=== PATIENT | female | born 1970 | race Two or more races ===

== ENCOUNTER 2021-04-02 04:35 | Day surgery (SDC) | payer OTHER ==
[2021-03-30 09:04] VITALS: BMI 26.9
[2021-04-02] MEDS ORDERED: ACETAMINOPHEN 325 MG TABLET (FP) PO PRN (08:12)
[2021-04-02] MEDS ORDERED: IBUPROFEN 400 MG TABLET (FP) PO PRN (08:12)
[2021-04-02] MEDS ORDERED: MIDAZOLAM HCL 2 MG/2 ML SINGLE DOSE VIAL ONE (09:07)
[2021-04-02] MEDS ORDERED: PROPOFOL 20 ML ONE (09:08)
[2021-04-02] MEDS ORDERED: ONDANSETRON 4 MG/2 ML VIAL IVPUSH PRN (10:25)
[2021-04-02] MEDS ORDERED: oxyCODONE HCL 5 MG TABLET PO PRN (10:25)
[2021-04-02] MEDS ORDERED: PROMETHAZINE HCL 25 MG/1 ML VIAL IVPUSH PRN (10:25)
[2021-04-02] MEDS ORDERED: LACTATED RINGERS SOLUTION 1,000 ML IV SCH (10:30)
[2021-04-02 12:37] VITALS: TEMP 97.5
[2021-04-02 14:37] VITALS: BP 110/68; PULSE 78
== END 2021-04-02 13:50 | disposition home or self-care (01) ==
LOC: JASU-SURG 04:35
PROVIDERS: ATTEND Obstetrics & Gynecology
PROC: 0UB98ZX Excision of Uterus, Via Natural or Artificial Opening Endoscopic, Diagnostic (ICD-10-PCS; principal; 2021-04-02 08:30)
PROC: 0UDB7ZZ Extraction of Endometrium, Via Natural or Artificial Opening (ICD-10-PCS; 2021-04-02 08:30)
DX: N84.0 Polyp of corpus uteri (principal)
CPT/HCPCS: 81025; 88305-TC; 94760